=== PATIENT | female | born 1985 | race Caucasian/White ===

== ENCOUNTER 2016-04-23 09:48 | Day surgery (SDC) | payer OTHER ==
[~2016-04-23] VITALS: Ht 167.6 cm; Wt 76.8 kg
[~2016-04-23 09:48] MED LIST: 0.9% Sodium Chloride 1,000 ML IV SCH; OMEP20CA11 PO; RANI150T11 PO; SUCR1ORA2 PO; Sodium Chloride LOK Flush 10 mL Syringe IV PRN; fentaNYL-PF 50 mCg/mL 2 mL Inj IVPUSH PRN
[2016-04-23 10:00] VITALS: BP 115/57; PULSE 73; RESP 14; O2SAT 98
[2016-04-23] MEDS ORDERED: 0.9% Sodium Chloride 1,000 ML IV ONE (10:23)
[2016-04-23 10:45] VITALS: BP 103/71; PULSE 72; RESP 14; O2SAT 94
[2016-04-23 11:00] VITALS: BP 102/64; PULSE 68; RESP 14; O2SAT 95
--- NOTE | 2016-04-23 11:34 | ENDO ---
[address] [address] ENDOSCOPY PROCEDURE PATIENT: WENDY MITTAL : 1985 MR#: [id number] ADMIT: 04/23/2016 JOB ID: [id number] TYPE OF OPERATION: Esophagogastroduodenoscopy with biopsy. PREOPERATIVE DIAGNOSIS(ES): Epigastric pain. POSTOPERATIVE DIAGNOSIS(ES): 1. Mild bile reflux. 2. Mild nonerosive gastritis. ANESTHESIA: Fentanyl 100 mcg and Versed 5 mg IV administered. COMPLICATIONS: None. BLOOD LOSS: Minimal. DESCRIPTION OF PROCEDURE: After the risks and benefits were explained to the patient, informed consent was obtained. After anesthesia administered, the upper endoscope was inserted in the mouth, intubating through the esophagus, stomach, second portion of the duodenum and the mucosa carefully examined. After the procedure was done, the scope was withdrawn and the procedure terminated. FINDINGS: Upon inspection of the esophagus, the esophagus was normal, without masses, ulcers, or lesions. Z-line located 40 cm from incisors. Upon entering the stomach, there was mild nonerosive gastritis that was seen and also mild bile reflux that was seen. Retroflexion was normal. Duodenal bulb and first and second portions were normal. Biopsies taken in the antrum and body of the stomach. IMPRESSIONS: 1. Mild nonerosive gastritis. 2. Mild bile reflux. RECOMMENDATIONS: 1. Continue with omeprazole as an outpatient. 2. Await biopsy results. 3. Follow up in GI Clinic as needed.
--- NOTE | 2016-04-24 14:20 | PATH ---
SURGICAL PATHOLOGY Attending Physician:Andres Spann MD CASE STATUS: Signed Out PATIENT NAME: WENDY MITTAL PID: [id number] : 1985 DATE COLLECTED:04/23/2016 16:29 SPECIMEN: 1: Stomach, Antrum, Biopsy 2: Gastric, Biopsy CLINICAL HISTORY: 1). ANTRUM BIOPSY 2). GASTRIC BODY BIOPSY FINAL DIAGNOSIS: 1.ANTRUM BIOPSY: ANTRAL MUCOSA WITH NO DIAGNOSTIC ALTERATIONS. Negative for Helicobacter organisms. Negative for intestinal metaplasia. Negative for dysplasia and malignancy. 2.GASTRIC BODY BIOPSY: BODY-TYPE MUCOSA WITH NO DIAGNOSTIC ALTERATIONS. Negative for Helicobacter organisms. Negative for intestinal metaplasia. Negative for dysplasia and malignancy. ICD10 CODE R10.13 GROSS DESCRIPTION: The specimen is received in two formalin filled containers labeled with the patient's name. 1). The specimen is sublabeled "antrum" and consists of 2 portions of tissue which aggregate to 0.4 x 0.3 x 0.2 CM. The specimen is entirely submitted in cassette 1A. 2). The specimen is sublabeled "gastric body" and consists of 2 portions of tissue which aggregate to 0.3 x 0.3 x 0.2 CM. The specimen is entirely submitted in cassette 2A. 04/23/2016 [facility] MICRO DESCRIPTION: See diagnosis. ICD-9 CODES: CPT CODES: 1: 11424 2: 69704 Electronically Signed Out Steph Harry MD [facility] Pathology [facility] [place] [address] Technical component performed at [facility], [address] [place] [address] Ave[address], [address]
== END 2016-04-23 23:59 | disposition home or self-care (01) ==
LOC: END 09:48
PROVIDERS: ATTEND Internal Medicine Gastroenterology
DX: K29.50 Unspecified chronic gastritis without bleeding (principal); K21.9 Gastro-esophageal reflux disease without esophagitis
CPT/HCPCS: 43239; 88305; G0500; J2250; J3010; J7030